=== PATIENT | female | born 1975 | race Caucasian/White ===

== ENCOUNTER 2019-04-22 10:49 | Emergency (ER) | payer MEDICARE, SELFPAY ==
[2019-04-22 10:52] VITALS: BP 115/63; PULSE 95; RESP 24; TEMP 36; O2SAT 100
--- NOTE | 2019-04-22 11:09 | DI.CT_ITS ---
SYMPTOM/DIAGNOSIS; COLICKY LT FLANK AND LUQ PAIN CT ABDOMEN AND PELVIS: Noncontrast examination was performed. The lung bases are clear. Lack of IV contrast does limit evaluation of the abdominal and pelvic organs. The liver, spleen, pancreas, gallbladder, bile ducts, adrenal glands, kidneys, ureters and bladder are unremarkable as are the reproductive organs. There is low attenuation bowel wall thickening seen in the ascending transverse and descending colon suggestive of colitis. There is a normal appendix present. The aorta is of normal caliber. No significant abdominal and pelvic adenopathy, ascites or pneumoperitoneum is seen. There is a small fat-containing umbilical hernia. No acute osseous abnormality is identified. IMPRESSION: Low attenuation bowel wall thickening throughout the colon consistent with colitis. This may represent an infectious or inflammatory colitis.
--- NOTE | 2019-04-22 11:09 | W.ED.GENAD ---
Discharge Plan Disposition Patient Disposition: HOME Condition: Improving Discharge Details Chief Complaint: Abd Prob Clinical Impression: Colitis Primary Care Provider: Jessica Rosado ED Provider: Jaguar La Home Meds and New Rx's Prescriptions: Continued Prilosec 10 MG susp,delayed release for recon 20 mg PO DAILY RF: 0 Discharge Instructions Instructions: Gastroenteritis (ED) Additional Instructions: Home to rest today. Small, frequent sips of fluids and/or popsicles to maintain hydration. May advance a bland diet today. Return if you develop a fever, bloody stool, or any other acute concerns Medical Decision Making 43-year-old female presents from home with her partner. She had the abrupt onset of 2:00 this morning of left-sided abdominal pain associated with nausea and vomiting. No fever. States she feels as if she cannot get comfortable. She arrives with a temp of 36, blood pressure 115/63, tenderness present on the left side of her abdomen but without evidence of rebound tenderness. Differential diagnosis includes renal colic, UTI, colitis, bowel obstruction, diverticulitis. Patient had IV access established comfort for laboratory testing with urinalysis. She is given fluids, antiemetic, parenteral analgesia and referred for CT scan of the abdomen. Patient has white blood cell count of 11, hematocrit is 42, platelets 180. There is slight left shift present. Chemistries reveal an anion gap of 12. Creatinine is 1.2 CT reveals low-attenuation bowel wall thickening throughout the colon consistent with colitis. No evidence of active bleeding clinically and hematocrit within normal limits. Following fluids and parenteral medications, patient stated she felt 100% better. Is able to take liquids by mouth. She is stable for discharge home with conservative management. She and her partner understand return precautions to the ER HPI General Mode of arrival: ambulatory. Date/Time Provider Initiated Documentation: 04/22/19 10:51. Limitations to Documentation: no limitations. Information obtained by: patient and family. History of Present Illness 43 year old F presents to the emergency department with the chief complaint of Left abdominal pain and, described as severe, Quality is described as constant, and is localized to the abdomen and left. Patient reports radiation to back. Patient started experiencing this hour(s) and it has been constant. No relieving factors improve symptom(s), No exacerbating factors reported . Patient notes loss of appetite and nausea/vomiting; denies fever/chills. Patient did receive the following treatments prior to arrival, none Related Data Home Medications Medication Instructions Recorded Confirmed Prilosec 20 mg PO DAILY packet 03/11/17 04/22/19 Allergies Allergy/AdvReac Type Severity Reaction Status Date / Time Penicillins Allergy Mild Unverified 04/22/19 11:00 General Stated Complaint: Abd Prob MAGALI: 3 Review of Systems Review of Systems 6 systems reviewed and otherwise negative [facility] Medical History Agoraphobia Depression with anxiety Dissociative disorder GERD (gastroesophageal reflux disease) Insomnia PAD (peripheral artery disease) Reactive lymphadenopathy Surgical History Biopsy of breast (04/05/17) Hysterectomy, Laproscopic urethral surgery Exam Narrative Exam Narrative: GEN: awake, alert, oriented 3. Pleasant, well groomed, interactive. Uncomfortable and in distress HEAD: Normocephalic, atraumatic ENT: Mucous membranes moist, oropharynx unremarkable, External ear exam unremarkable EYES: PERRL, EOMI NECK: Full ROM, no BABAK, no menigismus CHEST/RESP: Nontender, clear to auscultation bilateral, no wheeze/rhonchi/rales CARDIOVASCULAR: RRR, no murmur, rub migdalia. 2+ Rad pulse bilateral ABDOMEN: Soft, tender left upper quadrant and left flank, no mass. +Bowel sounds EXT: Full ROM, no edema, no rash Neuro: Grossly normal neurologic exam, conversant, interactive. Psych: Speech fluent, thoughts congruent, affect normal Course Vital Signs Temperature 36 C L 04/22/19 10:52 Pulse 95 H 04/22/19 10:52 Respiratory Rate 24 04/22/19 10:52 Blood Pressure 115/63 04/22/19 10:52 Pulse Oximetry 100 04/22/19 10:52 Temperature 36 C L 04/22/19 10:52 Temperature Source Tympanic 04/22/19 10:52 Pulse 95 H 04/22/19 10:52 Respiratory Rate 24 04/22/19 10:52 Blood Pressure 115/63 04/22/19 10:52 Blood Pressure Position Sitting 04/22/19 10:52 Pulse Oximetry 100 04/22/19 10:52 Oxygen Delivery Method Room Air 04/22/19 10:52 Oxygen Flow Rate 0 04/22/19 10:52 Pain Level 7 04/22/19 10:52
[2019-04-22] MEDS: Normal Saline 1,000 ML 1000 ML IV (11:10)
[2019-04-22] MEDS: Ondansetron 4 MG/2 ML VIAL IVP (11:13)
[2019-04-22] MEDS: Normal Saline Flush 10 ML SYR IVP ×2 (11:16→11:52)
[2019-04-22] MEDS: HYDROmorphone 2 MG/ML VIAL 0.5 MG IVP (11:17)
[2019-04-22 11:43] LABS: Abs Immature Grans 0.02 k/cumm (0.0-0.09); Absolute Basophil Count 0.02 k/cumm (0.0-0.2); Absolute Monocyte Count 0.98 k/cumm (0.11-0.7); Basophils % 0.2; Eosinophils % 0.4; HCT 42.6 % (36.0-46.0); HGB 14.5 g/dL (12.0-15.5); Immature Grans % 0.2; Lymphocytes % 20.1; Mean Corpuscular Hemoglobin 31.9 pg (27.0-33.0); Mean Corpuscular Volume 93.6 fL (80-95); Mean Platelet Volume 12.4 fL (8.0-11.0); Monocytes % 8.7; Neutrophils % 70.4; Platelet Count 180 x1000/uL (130-400); RBC 4.55 m/cumm (4.00-5.20); RBC Distribution Width 12.5 % (11.7-14.6); White Blood Cell Count 11.22 k/cumm (4.4-10.8)
[2019-04-22 11:44] LABS: Absolute Eosinophil Count 0.04 k/cumm (0.0-0.7); Absolute Lymphocyte Count 2.26 k/cumm (1.2-3.4)
[2019-04-22] MEDS: Ketorolac 15 MG/ML VIAL IVP (11:51)
[2019-04-22] MEDS: Pantoprazole 40 MG VIAL IVP (11:51)
[2019-04-22 11:59] LABS: ALT 26 U/L (12-78); AST 14 U/L (15-37); Albumin 4.3 g/dL (3.4-5.0); Alkaline Phosphatase 46 U/L (46-116); Anion Gap 12.8 mmol/L (3-11); BUN 13 mg/dL (7-18); Bilirubin, Total 0.4 mg/dL (0.2-1.0); CO2 23.2 mmol/L (21.0-32.0); CREATININE 1.23 mg/dL (0.55-1.02); Calcium 9.2 mg/dL (8.5-10.1); Chloride 104 mmol/L (98-107); Estimated GFR 47.22 (mL/min/1.73m2); Glucose 140 mg/dL (70-100); Potassium 3.6 mmol/L (3.5-5.1); Sodium 140 mmol/L (136-145); Total Protein 7.6 g/dL (6.4-8.2)
--- NOTE | 2019-04-22 12:07 | DI.VRAD_ITS ---
EXAM: CT Abdomen and Pelvis Without Contrast EXAM DATE/TIME: 04/22/2019 11:10 AM CLINICAL HISTORY: 43 years old, female; Abdominal pain TECHNIQUE: Imaging protocol: Axial computed tomography images of the abdomen and pelvis without contrast. Coronal and sagittal reformatted images were created and reviewed. COMPARISON: No relevant prior studies available. FINDINGS: Liver: Normal. No mass. Gallbladder and bile ducts: Normal. No calcified stones. No ductal dilation. Pancreas: Normal. No ductal dilation. Spleen: Normal. No splenomegaly. Adrenals: Normal. No mass. Kidneys and ureters: Normal. No hydronephrosis. Stomach and bowel: Low-attenuation bowel wall thickening is seen throughout the colon consistent with colitis. Differential diagnosis includes infectious and inflammatory etiologies.. Appendix: Normal appendix Intraperitoneal space: Minimal free fluid in the pelvis Vasculature: Normal. No abdominal aortic aneurysm. Lymph nodes: Normal. No enlarged lymph nodes. Bladder: Unremarkable as visualized. Reproductive: Surgical resection of the uterus Bones/joints: No acute fracture. No dislocation. Soft tissues: Umbilical hernia contains fat. No bowel IMPRESSION: Low-attenuation bowel wall thickening is seen throughout the colon consistent with colitis. Differential diagnosis includes infectious and inflammatory etiologies.. Dictated and Authenticated by: Marquis Gan MD. Ordering:NUVIA Montesinos MD
[2019-04-22 12:36] VITALS: PULSE 65; RESP 18; TEMP 36.6; O2SAT 100
== END 2019-04-22 12:45 | disposition home or self-care (01) ==
LOC: ER 12:40
PROVIDERS: Emergency Provider Emergency Medicine; PCP Nurse Practitioner Family
DX: R10.12 Left upper quadrant pain (principal); K52.9 Noninfective gastroenteritis and colitis, unspecified
CPT/HCPCS: 36415; 80053; 83690; 96361; 96374; 96375; 99283; 99284; 74176; 83735; 84484; 85025; J0780; J1885; J2405

== ENCOUNTER 2019-04-22 18:14 | Emergency (ER) | payer MEDICARE, SELFPAY ==
[2019-04-22 18:17] VITALS: BP 114/69; PULSE 54; RESP 18; TEMP 36.4; O2SAT 98
--- NOTE | 2019-04-22 18:31 | ED.GENADUL_ITS ---
Discharge Plan Disposition Patient Disposition: HOME Condition: Stable Discharge Details Chief Complaint: Recheck Clinical Impression: Colitis Primary Care Provider: Jessica Rosado ED Provider: Ángel Dillard Home Meds and New Rx's Prescriptions: New ondansetron 4 mg tablet,disintegrating 4 mg PO Q8H PRN (Reason: nausea and vomiting) Qty: 20 RF: 0 ciprofloxacin HCl 500 mg tablet 500 mg PO BID Qty: 14 RF: 0 metronidazole [Flagyl] 500 mg tablet 500 mg PO BID Qty: 14 RF: 0 No Action Prilosec 10 MG susp,delayed release for recon 20 mg PO DAILY RF: 0 Discharge Instructions Instructions: Metronidazole (By mouth), Colitis (ED) Additional Instructions: follow up with your primary care provider within 1 week for pain you can take 1000mg tylenol and 600mg ibuprofen every 6 hours as needed if you have severe worsening of pain or persistent vomit return to the emergency department Medical Decision Making 43 yo female comes in with abdominal pain. She was seen earlier and had labs and imaging that showed colitis and was d/c'd. She has increased pain and n/v so came back. She now states her pain is all but gone and on exam is in no distress with soft nondistended abodmen with no guarding or rebound anywhere. Suspect her pain is from the colitis, given increased pain will start her on abx and she will return if worsening. given pain is gone and had ct and labs earlier do not feel further testing at present indicated Differential Diagnosis colitis, irritable bowel HPI General Mode of arrival: ambulatory . Date/Time Provider Initiated Documentation: 04/22/19 18:14 . Limitations to Documentation: no limitations . Information obtained by: patient . History of Present Illness 43 year old F presents to the emergency department with the chief complaint of abdominal pain, described as moderate, Quality is described as stabbing and aching, and is localized to the abdomen. Patient started experiencing this day(s) (1) and it has been intermittent. No relieving factors improve symptom(s), No exacerbating factors reported . Patient did receive the following treatments prior to arrival, none Related Data Home Medications Medication Instructions Recorded Confirmed Prilosec 20 mg PO DAILY packet 03/11/17 04/22/19 ciprofloxacin HCl 500 mg PO BID #14 tab 04/22/19 metronidazole [Flagyl] 500 mg PO BID #14 tab 04/22/19 ondansetron 4 mg PO Q8H PRN #20 tab 04/22/19 Previous Rx's Medication Instructions Recorded ciprofloxacin HCl 500 mg PO BID #14 tab 04/22/19 metronidazole [Flagyl] 500 mg PO BID #14 tab 04/22/19 ondansetron 4 mg PO Q8H PRN #20 tab 04/22/19 Allergies Allergy/AdvReac Type Severity Reaction Status Date / Time Penicillins Allergy Mild Unverified 04/22/19 11:00 General Stated Complaint: Recheck MAGALI: 3 Review of Systems Review of Systems All systems reviewed & are unremarkable except as noted in HPI and below Constitutional Denies chills, Denies fever(s) and Denies weakness Cardiovascular Denies chest pain and Denies dyspnea Respiratory Denies dyspnea Integumentary/Breasts Denies rash Neurologic Denies weakness PFSH Social History Smoking/Tobacco Use Status: Former Tobacco Use Alcohol Intake: current Alcohol Intake frequency: 3 or more drinks per day Alcohol type: other Drug use: Daily Substance use type: marijuana Do you feel safe at home: Yes Do you feel safe in your relationship?: Yes Exam Const General: no acute distress Orientation: alert HENMT Head: normal to inspection Ears: external ears normal General nose exam: external nose normal Mouth: moist mucous membranes Eyes General: appearance normal, both eyes and all related structures Neck Neck: normal visual inspection Resp Effort & Inspection: normal respiratory effort and able to speak in complete sentences Cardio Rate: regular rate GI Inspection: normal to inspection Palpation: soft Skin General skin exam: no rashes or lesions noted Neuro General: alert and oriented x3 Extrem General: normal to inspection Psych Mental Status: mental status grossly normal Course Vital Signs Temperature 36.4 C L 04/22/19 18:17 Pulse 54 L 04/22/19 18:17 Respiratory Rate 18 04/22/19 18:17 Blood Pressure 114/69 04/22/19 18:17 Pulse Oximetry 98 04/22/19 18:17 Temperature 36.4 C L 04/22/19 18:17 Temperature Source Temporal Artery Scan 04/22/19 18:17 Pulse 54 L 04/22/19 18:17 Respiratory Rate 18 04/22/19 18:17 Respiratory Effort Non-Labored 04/22/19 18:23 Blood Pressure 114/69 04/22/19 18:17 Blood Pressure Position Sitting 04/22/19 18:17 Pulse Oximetry 98 04/22/19 18:17 Oxygen Delivery Method Room Air 04/22/19 18:17 Oxygen Flow Rate 0 04/22/19 18:17 Pain Level 1 04/22/19 18:17
[2019-04-22] MEDS: Ondansetron O.D.T. 4 MG TABEF PO ×2 (18:46)
[2019-04-22 18:47] VITALS: BP 114/69; PULSE 54; RESP 18; TEMP 36.4; O2SAT 98
[2019-04-22] MEDS: Ciprofloxacin 500 MG TAB PO (18:47)
[2019-04-22] MEDS: metroNIDAZOLE 500 MG TAB PO (18:47)
== END 2019-04-22 18:45 | disposition home or self-care (01) ==
PROVIDERS: Emergency Provider Emergency Medicine; PCP Nurse Practitioner Family
DX: K52.9 Noninfective gastroenteritis and colitis, unspecified (principal)
CPT/HCPCS: 99283

== ENCOUNTER 2019-04-22 19:30 | Emergency (ER) | payer MEDICARE, SELFPAY ==
--- NOTE | 2019-04-22 19:33 | NUR.NOTE ---
Nursing Note: 30 min after taking zofran and being discharged PT preceded to vomit and pain worsened 6/10 pain
[2019-04-22 19:34] VITALS: BP 128/94; PULSE 73; RESP 17; TEMP 37; O2SAT 99
--- NOTE | 2019-04-22 20:00 | W.ED.GENAD ---
Discharge Plan Disposition Patient Disposition: HOME Condition: Improving Discharge Details Chief Complaint: Recheck Clinical Impression: Abdominal pain, Nausea vomiting and diarrhea, Diarrhea Primary Care Provider: Jessica Rosado ED Provider: Elinor Coronado Home Meds and New Rx's Prescriptions: New prochlorperazine maleate [Compazine] 10 mg tablet 10 mg PO Q8H PRN (Reason: nausea and vomiting) Qty: 7 RF: 0 Continued Prilosec 10 MG susp,delayed release for recon 20 mg PO DAILY RF: 0 ondansetron 4 mg tablet,disintegrating 4 mg PO Q8H PRN (Reason: nausea and vomiting) Qty: 20 RF: 0 ciprofloxacin HCl 500 mg tablet 500 mg PO BID Qty: 14 RF: 0 metronidazole [Flagyl] 500 mg tablet 500 mg PO BID Qty: 14 RF: 0 Discharge Instructions Instructions: Acute Nausea and Vomiting (ED), Acute Diarrhea (ED), Abdominal Pain (ED) Additional Instructions: Take the Compazine as needed and directed for nausea and vomiting. You can stop taking the Zofran if you have no relief with this. Take the antibiotics until finished. Follow-up with your primary care doctor next week for reevaluation. Return to the emergency department if you develop any worsening or new concerning symptoms. Discharge Data Discharge Date/Time-TO BE ENTERED AT DEPARTURE: 04/22/19 22:20 Discharge Physician: Elinor Coronado Medical Decision Making 43-year-old female with a history of anxiety, depression, GERD, peptic ulcer disease and hysterectomy who presents with epigastric abdominal pain, vomiting and diarrhea for the past 3 days, worse since this morning. She was seen twice today for the same complaint, first visit she had lab work which was unremarkable and imaging which noted findings consistent with colitis, she felt better and was discharged home. Her second visit this evening was for return of nausea and pain and was found to be without pain on evaluation and was discharged with Zofran, Cipro and Flagyl. She returns this evening with return of pain and vomiting. She has tenderness palpation in her right upper quadrant, epigastrium and left upper quadrant. She admits to drinking 5 beers daily for the past several years, last drink yesterday. She appears nontoxic but uncomfortable. Differential diagnosis includes pancreatitis, peptic ulcer disease, alcoholic gastritis, biliary colic, cholecystitis, colitis. She denies any complaint of chest pain or shortness of breath and is tender in her upper abdomen so doubt ACS. As this is her third visit today, will place an IV, bolus IV fluids, repeat labs and add lipase and give Pepcid, Compazine and GI cocktail and reassess. 2129 --labs reviewed. White blood cell count slightly increased from 11.2 to 12.7. Remainder of labs unremarkable. Lipase within normal limits. Patient states her nausea is completely resolved but has return of some pain. She is requesting her IV be taken out and she would like to go home. She was offered a dose of Toradol and is agreeable. Reassessment of abdomen soft and nontender. She was offered a repeat CT abdomen but declines and would rather go home. She had no relief with Zofran earlier, will send home with a prescription for Compazine. She is instructed to fill the antibiotics and take as directed. She is advised to follow-up with her primary care doctor for reevaluation and to return here anytime if worse. Medical Records Medical records reviewed: Yes I reviewed the patient's medical records. Lab Data Lab results reviewed: Yes I reviewed the patient's lab results. Laboratory Tests Range/Units 04/22/19 04/22/19 04/22/19 20:14 20:14 20:14 WBC (4.4-10.8) k/cumm 12.70 H RBC (4.00-5.20) m/cumm 4.20 Hgb (12.0-15.5) g/dL 13.5 Hct (36.0-46.0) % 39.5 MCV (80-95) fL 94.0 MCH (27.0-33.0) pg 32.1 MCHC (32.0-36.0) g/dL 34.2 RDW (11.7-14.6) % 12.6 Plt Count (130-400) x1000/uL 183 MPV (8.0-11.0) fL 11.8 H Immature Gran % 0.2 Neutrophils % 76.4 Lymphocytes % 15.1 Monocytes % 8.0 Eosinophils % 0.1 Basophils % 0.2 Absolute Neutrophils (1.2-6.7) k/cumm 9.70 H Absolute Lymphocytes (1.2-3.4) k/cumm 1.92 Absolute Monocytes (0.11-0.7) k/cumm 1.02 H Absolute Eosinophils (0.0-0.7) k/cumm 0.01 Absolute Basophils (0.0-0.2) k/cumm 0.03 Sodium (136-145) mmol/L 139 Potassium (3.5-5.1) mmol/L 3.4 L Chloride (98-107) mmol/L 104 Carbon Dioxide (21.0-32.0) mmol/L 23.3 Anion Gap (3-11) mmol/L 11.7 H BUN (7-18) mg/dL 11 Creatinine (0.55-1.02) mg/dL 1.21 H Estimated GFR/1.73 m2 (mL/min/1.73m2) 48.12 Glucose (70-100) mg/dL 135 H Calcium (8.5-10.1) mg/dL 8.5 Magnesium (1.8-2.4) mg/dL 1.8 Total Bilirubin (0.2-1.0) mg/dL 0.3 AST (15-37) U/L 11 L ALT (12-78) U/L 24 Alkaline Phosphatase (46-116) U/L 43 L Troponin I (0.00-0.06) ng/mL < 0.05 Total Protein (6.4-8.2) g/dL 7.1 Albumin (3.4-5.0) g/dL 4.0 Lipase (73-393) U/L 67 L HPI General Mode of arrival: ambulatory. Date/Time Provider Initiated Documentation: 04/22/19 19:31. Limitations to Documentation: no limitations. Information obtained by: patient. HPI Narrative: Patient is a 43-year-old female with a history of anxiety, depression, GERD, peptic ulcer disease, dissociative disorder, [place] phobia, hysterectomy who presents the ED with complaint of epigastric abdominal pain, vomiting and diarrhea for the past 3 days, worse since this morning. She describes the pain as feeling like an ocean wave and like I am riding on a roller coaster with a whooshing feeling in my upper abdomen. She denies any radiation of pain. She states she vomited 10 times today which was mainly phlegm. She admits to a watery brown diarrhea this morning. She states she drinks up to 5 beers daily every day for the past several years and last drink 4 alcoholic drinks yesterday. She denies any aggravating or alleviating factors. She denies regular NSAID use. She denies any recent antibiotics, recent travel, fever, chest pain, shortness of breath or urinary symptoms. She states she has 2 grandchildren that she is around frequently and states that she may have been exposed to something with them. Related Data Home Medications Medication Instructions Recorded Confirmed Prilosec 20 mg PO DAILY packet 03/11/17 04/22/19 ciprofloxacin HCl 500 mg PO BID #14 tab 04/22/19 04/22/19 metronidazole [Flagyl] 500 mg PO BID #14 tab 04/22/19 04/22/19 ondansetron 4 mg PO Q8H PRN #20 tab 04/22/19 04/22/19 prochlorperazine maleate 10 mg PO Q8H PRN #7 tab 04/22/19 [Compazine] Previous Rx's Medication Instructions Recorded ciprofloxacin HCl 500 mg PO BID #14 tab 04/22/19 metronidazole [Flagyl] 500 mg PO BID #14 tab 04/22/19 ondansetron 4 mg PO Q8H PRN #20 tab 04/22/19 prochlorperazine maleate 10 mg PO Q8H PRN #7 tab 04/22/19 [Compazine] Allergies Allergy/AdvReac Type Severity Reaction Status Date / Time Penicillins Allergy Mild Unverified 04/22/19 19:38 General Stated Complaint: Recheck MAGALI: 3 Review of Systems Review of Systems All systems reviewed & are unremarkable except as noted in HPI and below Constitutional Reports as per HPI, Denies chills and Denies fever(s) Eyes Denies blurry vision ENT Denies dizziness, Denies sore throat and Denies throat swelling Cardiovascular Denies chest pain and Denies dyspnea Respiratory Denies cough and Denies dyspnea Gastrointestinal Reports abdominal pain, Reports diarrhea and Reports vomiting Genitourinary Denies hematuria and Denies dysuria Musculoskeletal Denies back pain and Denies numbness Integumentary/Breasts Denies lesions and Denies rash Neurologic Denies dizziness, Denies focal weakness and Denies numbness Allergic/Immunologic Denies throat swelling [facility] Medical History (Updated 04/22/19 @ 20:25 by Elinor Coronado DO) Agoraphobia Depression with anxiety Dissociative disorder GERD (gastroesophageal reflux disease) Insomnia PAD (peripheral artery disease) Peptic ulcer disease (Chronic) Reactive lymphadenopathy Surgical History Biopsy of breast (04/05/17) Hysterectomy, Laproscopic urethral surgery Social History Smoking/Tobacco Use Status: Former Tobacco Use Alcohol Intake: current Alcohol Intake frequency: 3 or more drinks per day Alcohol type: other Drug use: Daily Substance use type: marijuana Do you feel safe at home: Yes Do you feel safe in your relationship?: Yes Exam Const General: cooperative, healthy appearing and other (appears uncomfortable, holding her upper abdomen) Orientation: alert, awake and oriented x3 HENMT Head: normal to inspection Face and sinus: normal facial exam Eyes General: appearance normal, both eyes and all related structures EOM: EOM intact bilaterally Neck Neck: normal visual inspection and No submandibular swelling Lymphatic: no lymphadenopathy noted Chest Chest: normal inspection of the chest and no tenderness Resp Effort & Inspection: normal respiratory effort and able to speak in complete sentences Auscultation: clear to auscultation bilaterally Cardio Rate: regular rate Rhythm: regular rhythm GI Inspection: normal to inspection Palpation: not firm, not rigid and tender in the epigastrum, in the LUQ and in the RUQ Auscultation: normal bowel sounds Back/Spine/Pelvis Back: no CVA tenderness Skin General skin exam: no rashes or lesions noted Neuro General: alert, awake and oriented x3 Cognition: normal cognition Speech: speech normal Motor: muscle tone normal throughout Sensory Exam: no sensory deficits noted Extrem General: normal to inspection, full ROM, normal capillary refill, no calf tenderness bilaterally and no edema Psych Appearance: grossly normal Mental Status: mental status grossly normal Speech and Movement: speech and movement normal Affect: normal affect Course Vital Signs Temperature 98.6 F 04/22/19 19:34 Pulse 73 04/22/19 19:34 Respiratory Rate 17 04/22/19 19:34 Blood Pressure 128/94 H 04/22/19 19:34 Pulse Oximetry 99 04/22/19 19:34 Temperature 98.6 F 04/22/19 19:34 Temperature Source Skin 04/22/19 19:34 Pulse 73 04/22/19 19:34 Respiratory Rate 17 04/22/19 19:34 Respiratory Effort 04/22/19 19:37 Blood Pressure 128/94 H 04/22/19 19:34 Blood Pressure Position Sitting 04/22/19 19:34 Pulse Oximetry 99 04/22/19 19:34 Oxygen Delivery Method Room Air 04/22/19 19:34 Oxygen Flow Rate 0 04/22/19 19:34 Pain Level 6 04/22/19 19:34
[2019-04-22 20:21] LABS: Abs Immature Grans 0.03 k/cumm (0.0-0.09); Absolute Basophil Count 0.03 k/cumm (0.0-0.2); Absolute Eosinophil Count 0.01 k/cumm (0.0-0.7); Absolute Lymphocyte Count 1.92 k/cumm (1.2-3.4); Absolute Monocyte Count 1.02 k/cumm (0.11-0.7); Basophils % 0.2; Eosinophils % 0.1; HCT 39.5 % (36.0-46.0); HGB 13.5 g/dL (12.0-15.5); Immature Grans % 0.2; Lymphocytes % 15.1; Mean Corp. HGB Concentration 34.2 g/dL (32.0-36.0); Mean Corpuscular Hemoglobin 32.1 pg (27.0-33.0); Mean Platelet Volume 11.8 fL (8.0-11.0); Neutrophils % 76.4; Platelet Count 183 x1000/uL (130-400); RBC Distribution Width 12.6 % (11.7-14.6)
[2019-04-22] MEDS: FAMOTIDINE 20 MG/50 ML BAG 200 MG IVPB (20:21)
[2019-04-22] MEDS: Normal Saline 1,000 ML 1000 ML IV (20:22)
[2019-04-22] MEDS: Prochlorperazine 10 MG/2 ML VIAL IVP (20:22)
[2019-04-22 20:38] LABS: ALT 24 U/L (12-78); AST 11 U/L (15-37); Alkaline Phosphatase 43 U/L (46-116); Anion Gap 11.7 mmol/L (3-11); BUN 11 mg/dL (7-18); Bilirubin, Total 0.3 mg/dL (0.2-1.0); CO2 23.3 mmol/L (21.0-32.0); CREATININE 1.21 mg/dL (0.55-1.02); Calcium 8.5 mg/dL (8.5-10.1); Chloride 104 mmol/L (98-107); Estimated GFR 48.12 (mL/min/1.73m2); Glucose 135 mg/dL (70-100); Magnesium 1.8 mg/dL (1.8-2.4); Potassium 3.4 mmol/L (3.5-5.1); Sodium 139 mmol/L (136-145); Total Protein 7.1 g/dL (6.4-8.2); Troponin I < 0.05 ng/mL (0.00-0.06)
[2019-04-22 21:00] LABS: Lipase 67 U/L (73-393)
[2019-04-22] MEDS: Ketorolac 30 MG/ML VIAL IVP (21:48)
== END 2019-04-22 22:20 | disposition home or self-care (01) ==
PROVIDERS: Emergency Provider Physician Assistant; PCP Nurse Practitioner Family
DX: R10.13 Epigastric pain (principal); R11.2 Nausea with vomiting, unspecified; R19.7 Diarrhea, unspecified
CPT/HCPCS: 36415; 80053; 83690; 96361; 96374; 96375; 99284; 83735; 84484; 85025; J0780; J1885

== ENCOUNTER 2019-04-24 13:40 | Outpatient (REF) | payer MEDICARE, SELFPAY ==
[2019-04-24 22:43] LABS: Anion Gap 11.2 mmol/L (3-11); BUN 5 mg/dL (7-18); CO2 26.8 mmol/L (21.0-32.0); CREATININE 0.91 mg/dL (0.55-1.02); Calcium 9.4 mg/dL (8.5-10.1); Chloride 104 mmol/L (98-107); Glucose 107 mg/dL (70-100); Sodium 142 mmol/L (136-145); TSH (W/Ref FT4) 1.25 uIU/mL (0.36-3.74)
== END 2019-04-24 14:00 ==
LOC: NCHCN 13:40
PROVIDERS: PCP Nurse Practitioner Family; Visit Provider Nurse Practitioner Family
DX: R00.1 Bradycardia, unspecified (principal); R11.10 Vomiting, unspecified
CPT/HCPCS: 80048; 84443

== ENCOUNTER 2019-04-26 09:27 | Emergency (ER) | payer MEDICARE, SELFPAY ==
[2019-04-26 09:28] VITALS: BP 143/86; PULSE 56; RESP 16; TEMP 37.1; O2SAT 97
--- NOTE | 2019-04-26 09:54 | ED.GENADUL_ITS ---
Discharge Plan Disposition Patient Disposition: HOME Condition: Stable Discharge Details Chief Complaint: Nausea/Vomit/Diar Clinical Impression: Cannabinoid hyperemesis syndrome Primary Care Provider: Jessica Rosado ED Provider: Ángel Dillard Home Meds and New Rx's Prescriptions: No Action Prilosec 10 MG susp,delayed release for recon 20 mg PO DAILY RF: 0 ondansetron 4 mg tablet,disintegrating 4 mg PO Q8H PRN (Reason: nausea and vomiting) Qty: 20 RF: 0 ciprofloxacin HCl 500 mg tablet 500 mg PO BID Qty: 14 RF: 0 metronidazole [Flagyl] 500 mg tablet 500 mg PO BID Qty: 14 RF: 0 Discharge Instructions Additional Instructions: Your symptoms and findings could be from what's called cannabinoid hyperesmesis syndrome, which is abdominal pain/nausea/vomit from prolonged use of marijuana. Use the capsaicin cream as needed for nausea/abdominal pain/vomit follow up with your primary care provider within 1-2 weeks if symptoms continue if you have severe worsening pain not improving with the cream or feel more ill return to the emergency department Medical Decision Making 43 yo female with hx of agoraphobia, who comes in with continued n/v and luq and epigastric pain. Was seen on 04/22 with negative labs and imaging other than possible colitis. She returned that same day for similar symptoms and d/c'd after her symptoms resolved and had reassuring repeat lab work and exam. She states she continues to have intermittent pain and n/v. She does use marijuana daily otherwise denies drug use. She has had a hysterectomy in the psat. She arrives in no distress, does appear anxious. She has no lower abdominal tenderness and abdomen is soft on exam without distention. Has mild epigastric and luq pain. Her exam is reassuring that she is not suffering from surgical pathology such as cholecystitis, appendicitis and sbo. No chest pain or pressure or sob so doubt acs. I ssupect her symptoms could be cyclic vomit/cannabinoid hyperemesis. will obtain lab works and try capsacin cream and if this fails try ativan as zofran/compazine hasn't provided much relief pt's symptoms resolved with capsaicin cream and labs unremarkable, mild elevation of alt otherwise negative lfts and no longer has any abdominal tenderness. Given symptoms resolved with capsacin suspect cannabinoid hyperemesis. Advised f/u with pcp and return precautions given Differential Diagnosis cyclic vomit, cannabinoid hyperemesis Medical Records Medical records reviewed: Yes I reviewed the patient's medical records. Lab Data Lab results reviewed: Yes I reviewed the patient's lab results. HPI General Mode of arrival: ambulatory . Date/Time Provider Initiated Documentation: 04/26/19 09:28 . Limitations to Documentation: no limitations . Information obtained by: patient . History of Present Illness 43 year old F presents to the emergency department with the chief complaint of nausea/vomit, described as moderate, and it has been intermittent. No relieving factors improve symptom(s), No exacerbating factors reported . Patient did receive the following treatments prior to arrival, none Related Data Home Medications Medication Instructions Recorded Confirmed Prilosec 20 mg PO DAILY packet 03/11/17 04/26/19 ciprofloxacin HCl 500 mg PO BID #14 tab 04/22/19 04/26/19 metronidazole [Flagyl] 500 mg PO BID #14 tab 04/22/19 04/26/19 ondansetron 4 mg PO Q8H PRN #20 tab 04/22/19 04/26/19 Previous Rx's Medication Instructions Recorded ciprofloxacin HCl 500 mg PO BID #14 tab 04/22/19 metronidazole [Flagyl] 500 mg PO BID #14 tab 04/22/19 ondansetron 4 mg PO Q8H PRN #20 tab 04/22/19 Allergies Allergy/AdvReac Type Severity Reaction Status Date / Time Penicillins Allergy Mild Unverified 04/26/19 09:44 prochlorperazine AdvReac Mild Unverified 04/26/19 09:45 [From Compazine] General Stated Complaint: Nausea/Vomit/Diar MAGALI: 3 Review of Systems Review of Systems All systems reviewed & are unremarkable except as noted in HPI and below Constitutional Denies chills, Denies fever(s) and Denies weakness Cardiovascular Denies chest pain and Denies dyspnea Respiratory Denies cough and Denies dyspnea Gastrointestinal Denies vomiting Neurologic Denies weakness PFSH Medical History (Updated 04/22/19 @ 20:25 by Elinor Coronado DO) Agoraphobia Depression with anxiety Dissociative disorder GERD (gastroesophageal reflux disease) Insomnia PAD (peripheral artery disease) Peptic ulcer disease (Chronic) Reactive lymphadenopathy Surgical History Biopsy of breast (04/05/17) Hysterectomy, Laproscopic urethral surgery Social History Smoking/Tobacco Use Status: Former Tobacco Use Alcohol Intake: current Alcohol Intake frequency: 3 or more drinks per day Alcohol type: other Drug use: Daily Substance use type: marijuana Do you feel safe at home: Yes Do you feel safe in your relationship?: Yes Exam Const General: no acute distress Orientation: alert HENMT Head: normal to inspection Ears: external ears normal General nose exam: external nose normal Mouth: moist mucous membranes Eyes General: appearance normal, both eyes and all related structures Neck Neck: normal visual inspection Resp Effort & Inspection: normal respiratory effort and able to speak in complete sentences Cardio Rate: regular rate GI Palpation: soft Skin General skin exam: no rashes or lesions noted Neuro General: alert and oriented x3 Extrem General: normal to inspection Psych Mental Status: mental status grossly normal Course Vital Signs Temperature 37.1 C 04/26/19 09:28 Pulse 56 L 04/26/19 09:28 Respiratory Rate 16 04/26/19 09:28 Blood Pressure 143/86 H 04/26/19 09:28 Pulse Oximetry 97 04/26/19 09:28 Temperature 37.1 C 04/26/19 09:28 Temperature Source Skin 04/26/19 09:28 Pulse 56 L 04/26/19 09:28 Respiratory Rate 16 04/26/19 09:28 Respiratory Effort 04/26/19 09:52 Blood Pressure 143/86 H 04/26/19 09:28 Blood Pressure Position Sitting 04/26/19 09:28 Pulse Oximetry 97 04/26/19 09:28 Oxygen Delivery Method Room Air 04/26/19 09:28 Oxygen Flow Rate 0 04/26/19 09:28 Pain Level 4 04/26/19 09:28 Comment 04/26/19 09:28
[2019-04-26] MEDS: Normal Saline 1,000 ML 1000 ML IV (10:00)
[2019-04-26 10:11] LABS: Abs Immature Grans 0.03 k/cumm (0.0-0.09); Absolute Basophil Count 0.03 k/cumm (0.0-0.2); Absolute Eosinophil Count 0.05 k/cumm (0.0-0.7); Absolute Lymphocyte Count 3.01 k/cumm (1.2-3.4); Absolute Neutrophil Count 6.19 k/cumm (1.2-6.7); Basophils % 0.3; Eosinophils % 0.5; HCT 40.1 % (36.0-46.0); HGB 13.9 g/dL (12.0-15.5); Immature Grans % 0.3; Lymphocytes % 28.9; Mean Corp. HGB Concentration 34.7 g/dL (32.0-36.0); Mean Corpuscular Hemoglobin 31.9 pg (27.0-33.0); Mean Platelet Volume 11.6 fL (8.0-11.0); Monocytes % 10.6; Neutrophils % 59.4; Platelet Count 190 x1000/uL (130-400); RBC 4.36 m/cumm (4.00-5.20); RBC Distribution Width 12.3 % (11.7-14.6); White Blood Cell Count 10.41 k/cumm (4.4-10.8)
[2019-04-26 10:29] LABS: ALT 79 U/L (12-78); AST 27 U/L (15-37); Albumin 4.1 g/dL (3.4-5.0); Alkaline Phosphatase 44 U/L (46-116); Anion Gap 10.3 mmol/L (3-11); BUN 6 mg/dL (7-18); Bilirubin, Direct 0.12 mg/dL (0.00-0.20); Bilirubin, Total 0.4 mg/dL (0.2-1.0); CO2 26.7 mmol/L (21.0-32.0); CREATININE 1.01 mg/dL (0.55-1.02); Calcium 8.8 mg/dL (8.5-10.1); Chloride 102 mmol/L (98-107); Estimated GFR 59.27 (mL/min/1.73m2); Glucose 110 mg/dL (70-100); Lipase 68 U/L (73-393); Magnesium 2.2 mg/dL (1.8-2.4); Potassium 3.3 mmol/L (3.5-5.1); Sodium 139 mmol/L (136-145); Total Protein 7.2 g/dL (6.4-8.2)
--- NOTE | 2019-04-26 10:34 | NUR.NOTE ---
Nursing Note: 1030--Relief of nausea 20 min after application of Capsacian cream
[2019-04-26 10:55] VITALS: BP 136/78; PULSE 56; RESP 16; TEMP 37; O2SAT 97
== END 2019-04-26 10:55 | disposition home or self-care (01) ==
PROVIDERS: Emergency Provider Emergency Medicine; PCP Nurse Practitioner Family
DX: F12.188 Cannabis abuse with other cannabis-induced disorder (principal); R11.10 Vomiting, unspecified
CPT/HCPCS: 36415; 80053; 80076; 83690; 96361; 96374; 99284; 83735; 85025

== ENCOUNTER → 2019-07-05 10:14 | Outpatient (BNVA) | payer MEDICARE, SELFPAY | PROVIDERS: PCP Nurse Practitioner Family; Referring Provider Nurse Practitioner Family; Visit Provider Physical Therapy Assistant | DX: K52.9 Noninfective gastroenteritis and colitis, unspecified (principal) | CPT/HCPCS: 99213 ==

== ENCOUNTER 2019-07-26 13:55 | Outpatient (REF) | payer MEDICARE, SELFPAY ==
[2019-07-26 19:32] LABS: Anion Gap 10.1 mmol/L (3-11); BUN 8 mg/dL (7-18); CO2 25.9 mmol/L (21.0-32.0); CREATININE 1.12 mg/dL (0.55-1.02); Calcium 9.3 mg/dL (8.5-10.1); Chloride 104 mmol/L (98-107); Estimated GFR 52.61 (mL/min/1.73m2); Glucose 91 mg/dL (70-100); Magnesium 2.1 mg/dL (1.8-2.4); Potassium 4.2 mmol/L (3.5-5.1); Sodium 140 mmol/L (136-145); Vitamin B12 336 pg/mL (193-986)
== END 2019-07-26 14:15 ==
LOC: NCHCN 13:55
PROVIDERS: PCP Nurse Practitioner Family; Visit Provider Nurse Practitioner Family
DX: K21.9 Gastro-esophageal reflux disease without esophagitis (principal); K52.9 Noninfective gastroenteritis and colitis, unspecified; R19.00 Intra-abdominal and pelvic swelling, mass and lump, unspecified site
CPT/HCPCS: 80048; 82607; 83735

== ENCOUNTER 2019-07-31 08:33 | Outpatient (CLI) | payer MEDICARE, SELFPAY ==
--- NOTE | 2019-07-31 08:37 | DI.US_ITS ---
EXAM: US ABDOMEN CLINICAL HISTORY: ABDOMINAL MASS R19.00 TECHNIQUE: Ultrasound performed using standard protocol. COMPARISON: CT ABDOMEN PELVIS WO from 04/22/2019 FINDINGS: The exam is somewhat limited by the patient's body habitus. The liver is normal in size and echogen icity. No biliary dilatation is seen. The gallbladder has a normal appearance, without evidence of s tones or wall thickening. The pancreas, spleen, kidneys and aorta are unremarkable. In the area of t he patient's pain in the midline of the abdomen, above the umbilicus, there is a hernia containing fl uid. It did not change with Valsalva and was not reducible. IMPRESSION: Fatty containing hernia above the level of the umbilicus with a small fluid collection.
== END 2019-07-31 08:53 ==
PROVIDERS: PCP Nurse Practitioner Family; Visit Provider Nurse Practitioner Family
DX: R19.00 Intra-abdominal and pelvic swelling, mass and lump, unspecified site (principal); K42.9 Umbilical hernia without obstruction or gangrene
CPT/HCPCS: 76700

== ENCOUNTER → 2019-09-06 12:51 | Outpatient (BNVA) | payer MEDICARE, SELFPAY | PROVIDERS: PCP Nurse Practitioner Family; Referring Provider Nurse Practitioner Family; Visit Provider Physical Therapy Assistant | DX: K52.9 Noninfective gastroenteritis and colitis, unspecified (principal) | CPT/HCPCS: 99213 ==

== ENCOUNTER 2019-09-13 06:12 | Day surgery (SDC) | payer MEDICARE, SELFPAY ==
[2019-09-13 06:46] VITALS: BP 125/82; PULSE 86; RESP 18; TEMP 36.2; O2SAT 97
[2019-09-13] MEDS: Lactated Ringers 1,000 ML 80 ML IV (07:01)
--- NOTE | 2019-09-13 07:51 | BOWEL_PTH ---
PATIENT: Chandan Lo LOC: [facility] U#:[id number] AGE/SX: 43/F ROOM: RE09/13/[address]: Batsheva Blanco : 1975 BED: DIS: 09/13/2019 SPEC #: [id number] RECD: 09/13/19 12:52 STATUS: KENTRELL RE #: [id number] JUDSON: 09/13/19 07:[address]: Batsheva Blanco DEPT: Surgical Specimen RECD BY: Caryl Lovett ENTERED: 09/13/19 13:01 SP TYPE: Bowel OTHR DR: Jessica Rosado Tissues: 1 - BIOPSY BOWEL 2 - BIOPSY BOWEL 3 - STOMACH BIOPSY 4 - STOMACH BIOPSY 5 - ESOPHAGUS BIOPSY 6 - ESOPHAGUS BIOPSY 7 - BIOPSY BOWEL 8 - BIOPSY BOWEL 9 - BIOPSY BOWEL 10 - BIOPSY BOWEL 11 - BIOPSY BOWEL Procedures: GROSS AND MICRO LEVEL 4 Comments: [id number]
--- NOTE | 2019-09-13 08:27 | ENDO_ITS ---
Date of service: 09/13/19 Time of Service: 08:27 Endoscopy Report POST-OP DIAGNOSIS: other (sm. hiatal hernia/mild gastritis) ANESTHESIA: GETA ESTIMATED BLOOD LOSS: 1 PREP: Miralax/Dulcolax PROCEDURE DESCRIPTION: After informed consent was obtained the patient was take to the procedure room and placed in a supine position. Monitors were applied and a time out was done. The patients name, date of , procedure type, allergies to medications and metal in their body was reviewed. A bite block was placed and the patient was sedated. Once sedated and comfortable the gastroscope was advanced through the oropharynx which was grossly normal into the esophagus. The proximal and mid-esophagus were nl. In the distal esophagus there was healthy. The scope was advanced into the stomach and through the pylorus into the 3rd portion of the duodenum. The duodenum was noted to be nl. [place] appears pink and healthy. Vasculature archituexture appears nl. [place] appears healthy. Biopsies were done prox jejunum The scope was retracted back into the stomach and biopsies were done to rule out H. pylori. There were no ulcers. There is some mild gasttritis in the antrum. The scope was retroflexed. The cardia and fundus were noted to be normal. There is a small hiatal hernia noted. The scope was retracted back into the esophagus and biopsies were done of the GE junction to rule out Mariscal's. The GE junction was at 38 cm. She has a very small hiatal hernia. The scope was removed and the patient was woken up and taken back to [facility] in stable condition.
--- NOTE | 2019-09-13 08:29 | W.COLOREPORT ---
Colonoscopy Report Procedure Description: After informed consent was obtained the patient was taken to the procedure room and placed in a left decubitous position. Monitors were applied and a time out was done. The patients name, date of , procedure, allergies to medications and metal in their body was reviewed. The patient was then sedated. Once sedated and comfortable a rectal exam was done. External exam was normal. Internal exam revealed a normal sphincter tone and no palpable masses. The scope was then introduced and retrofelexed. no internal hemorrhoids were identified. The scope was then advanced to the cecum w/out difficulty. The TI and appendiceal orifice were identified. The prep was adequate. The scope was then slowly retracted over 12 minutes back into the rectum. There were no polyps AVMs or diverticula.. The colon appears pink and healthy. The vasculature appears normal. Biopsies were taken in the cecum/80 cm which is a sending colon/50 cm or transverse colon/30 cm sigmoid colon/rectum. All specimens are retrieved and no significant bleeding is noted the scope was removed and the patient was woken up and taken back to Same day surgery in stable condition. The patient tolerated the procedure well and there were no immediate complications. Follow up: The patient should follow up in 10 years unless they develop changes in bowel habits or other new gastrointestinal complaints.
--- NOTE | 2019-09-13 08:31 | W.PM.DSUDISC ---
Discharge Plan Disposition Patient Disposition: HOME Condition: Good Discharge Details Reason For Visit: stomach adn colon scope Attending Provider: Batsheva Blanco Primary Care Provider: Jessica Rosado Home Meds and New Rx's Prescriptions: New sucralfate [Carafate] 1 gram tablet 1 gm PO QACHS Qty: 120 RF: 12 pantoprazole [Protonix] 40 mg tablet,delayed release (DR/EC) 40 mg PO DAILY Qty: 30 RF: 12 Continued buspirone 15 mg tablet 15 mg PO BID RF: 0 Discontinued polyethylene glycol 3350 17 gram/dose powder 238 g PO ONCE Qty: 238 RF: 0 bisacodyl [Dulcolax (bisacodyl)] 5 mg tablet,delayed release (DR/EC) 5 mg PO ONCE Qty: 4 RF: 0 omeprazole 40 mg capsule,delayed release(DR/EC) 40 mg PO DAILY RF: 0 Discharge Instructions Instructions: Diet for Stomach Ulcers and Gastritis (GEN), Gastroesophageal Reflux Disease (GEN) Additional Instructions: Findings:colon- normal stomach- mild gastritis added carafate -Continue with lifestyle modifications: no alcohol, tobacco products, Aspirin or NSAID's (ibuprofen, Motrin, Naprosyn, aleve, etc). Try to limit: soda pop/any carbonated beverages, caffeine (including tea & chocolate), and acidic foods, (tomatoes, citrus, onions, peppermints) spicy or fried/fatty foods. Do not lie down for 30 minutes after eating, and do not eat 2 hours prior to bedtime. Avoid wearing tight fitting clothing/ belts repeat colon scope in 10 yrs time Follow up:Will send a letter w/ biopsy results in 2-3 wks. Please call if you develop: fevers >101.5 Nausea or Vomiting Abdominal pain that is not transient DAY SURGERY UNIT POST COLONOSCOPY INSTRUCTIONS 1. Because there will be medication in your system for the next 24 hours, you may feel a little sleepy. Your coordination will be affected. Therefore: a. Do not drive or operate dangerous equipment for 24 hours. b. Do not drink alcohol beverages for 24 hours (not even beer). c. Plan to go home and rest for the day. 2. Generally there are no restrictions on your activity after a day or so has gone by, but you may feel a bit fatigued for a few days. 3 After you arrive home you may have a light meal and return to a normal diet as you can tolerate it without feeling sick to your stomach. 4. After surgery, you may feel pain or discomfort. This should be only transient, but if it persists please contact your doctor. 5. If there are any questions regarding the findings of your procedure, please feel free to contact your doctor. 6. If you are unable to contact your doctor with a problem, contact the hospital at [phone]. 7. Continue all your regular medications unless directed otherwise. I understand the above instructions and have no questions. Signature of Patient or Responsible Adult Escort Date/Time Name of Responsible Adult Escort Signature of Nurse Date/Time Stand Alone Forms: Earnest Vieira (ASHLEEU) Activity:: no strenuous activity or heavy lifting x 24 hrs Diet:: small lt meals x 24 hrs Discharge Orders Discharge Orders: Discharge Order (Routine); Ordered 09/13/19 Ordered By: Batsheva Blanco Discharge Data Discharge Date/Time-TO BE ENTERED AT DEPARTURE: 09/13/19 09:30 DS: Diagnosis Discharge Diagnosis (1) Gastritis: Status: Acute
== END 2019-09-13 09:30 | disposition home or self-care (01) ==
PROVIDERS: PCP Nurse Practitioner Family; Visit Provider Surgery
PROC: (CPT 45380; principal; 2019-09-13 07:30)
DX: K52.9 Noninfective gastroenteritis and colitis, unspecified (principal); R10.13 Epigastric pain; R11.2 Nausea with vomiting, unspecified; K21.0 Gastro-esophageal reflux disease with esophagitis; K44.9 Diaphragmatic hernia without obstruction or gangrene; K29.70 Gastritis, unspecified, without bleeding
CPT/HCPCS: 45380; 43239; 88305

== ENCOUNTER 2019-09-20 00:37 | Outpatient (CLI) | payer MEDICARE, SELFPAY ==
--- NOTE | 2019-09-20 15:15 | DI.MAMMO_ITS ---
EXAM: MG MAMMO SCREENING CLINICAL HISTORY: SCREENING Z12.31, FAM HX BREAST CANCER Z80.3 TECHNIQUE: Mammograms were interpreted according to the usual protocol including computer analysis w [facility] CAD system, tomosynthesis and C-view imaging. COMPARISON: FINDINGS: The breasts are of moderate density with fairly symmetrical distribution of fibroglandular tissue. W ell-circumscribed mass of the upper outer quadrant of the right breast is unchanged in appearance com parison with previous examination of January 2017 and may represent lymph node versus cyst. No new mass or clumped microcalcification identified in either breast. IMPRESSION: No specific evidence of malignancy at this time. Routine screening examinations are suggested at yea rly intervals due to the family history of breast carcinoma Category 1, breast density category B
== END 2019-09-20 00:57 ==
PROVIDERS: PCP Nurse Practitioner Family; Visit Provider Nurse Practitioner Family
DX: Z12.31 Encounter for screening mammogram for malignant neoplasm of breast (principal); Z80.3 Family history of malignant neoplasm of breast
CPT/HCPCS: 77063; 77067

== ENCOUNTER → 2019-10-05 14:14 | Outpatient (BNVA) | payer MEDICARE, SELFPAY | PROVIDERS: PCP Nurse Practitioner Family; Referring Provider Nurse Practitioner Family; Visit Provider Surgery | DX: K42.9 Umbilical hernia without obstruction or gangrene (principal); K43.9 Ventral hernia without obstruction or gangrene | CPT/HCPCS: 99202; 99213 ==

== ENCOUNTER 2019-10-31 06:20 | Day surgery (SDC) | payer MEDICARE, SELFPAY ==
[2019-10-31] VITALS (9 sets, daily range): BP systolic 94–128; BP diastolic 56–85; PULSE 45–89; RESP 15–20; TEMP 36–36.7; O2SAT 95–97
--- NOTE | 2019-10-31 06:44 | ROE_ITS ---
Date of service: 10/31/19 Time of Service: 09:35 Operative Note Operative Note DATE OF PROCEDURE: 10/31/19 PRE-OP DIAGNOSIS: 1. Umbilical Hernia 2. Epigastric/ supraumbilical hernia POST-OP DIAGNOSIS: same PROCEDURE: Open repair of both hernias with mesh SURGEON: Judy Dowling ANESTHESIA: regional (Bilateral rectus block), local (1% Lidociane 7 cc and Bupivocaine 0.25% 10 cc) and other (General with LMA / ASA 2/ Lico Contreras) ESTIMATED BLOOD LOSS: 5 PATHOLOGY: none sent COMPLICATIONS: None Patient was transported to: PACU Patient's condition: stable Implants: Ventralex ST Hernia Patch REF [id number] EXP 2021-03-23 Indications: (1) Umbilical hernia: A\\ 43 year opld female with small umbilical hernia P\\ Open hernia repair with mesh Pain controll with Exparel and tylenol and ibuprofen Narcotics for 3 days if pain not controlled with local and ibuprofen and tylenol Risks, benefits and complications have been reviewed. Complications include but are not limited to bleeding, pain, infection, injury to underlying structures like bowel and adverse reaction to the medication. Questions were entertained and answered to their satisfaction and they wished to proceed. No guarantees were given or implied. (2) Epigastric hernia: A\\ Supra-umbilical/ epigastric hernia P\\ Open hernia repair with mesh Risks, benefits and complications have been reviewed. Complications include but are not limited to bleeding, pain, infection, injury to underlying structures like bowel and adverse reaction to the medication. Questions were entertained and answered to their satisfaction and they wished to proceed. No guarantees were given or implied. Findings: Supra-umbilical hernia- defect measured 1.5 cm. It was enlarged to 2.5 cm toget a mesh under it Umbilical hernia- <1 cm in size closed with 2-0 proline Procedure Description: After informed consent was obtained the patient was taken to the operating room and placed in a supine position. Monitors and SCDs were applied and a timeout was done. The patient's name, date of , procedure type, procedure site, allergies to medications, preoperative antibiotic, and DVT prophylaxis were all reviewed. Fire risk was assessed. Next anesthesia did a bilateral rectus block under ultrasound guidance. Please see their separate dictation. Once anesthesia was done the abdomen was prepped and draped in a sterile surg ical fashion. 1% Lidocaine was injected into the dermis 7 cm superior to the umbilicus. The hernia was palpable and had been marked in SDS. An incision was made with a 10 blade over the palpable hernia. Dissection was done with cautery through the subcutaneous tissues to the hernia sac. The hernia sac was trimmed. Cockers were placed on the fascia. The defect was measured and was 1.5 cm in s ize. The defect was opened to 2.5 cm and a 6.5 cm round mesh was placed into the peritoneum. It was secured at the 3 and 9 oclock position with transfascial 2-0 proline sutures. The mesh was then tacked up with dissolvable tacks circumferentially. The fascia was then closed over the mesh with 2-0 proline. The fascia was then injected with bupivocaine 0.25%. The subcutaneous tissue was re-approximated with interrupted 3-0 vicryl. The dermis was closed with 4-0 vicryl. The skin was cleaned and dried and skin affix was applied. Next 1% Lidocaine was injected just above the umbilicaus. An incision was made with a 10 blade. The dissection was continued with cautery down to the hernia sac. The hernia sac was opened and there was a small amount of fat within the hernia sac. The sac was amputated and the fat was reduced. The hernia defect was measured at 1 cm x 0.5 cm. The fascia was primarily closed with 2-0 proline figure of eight stitches x 2. 0.25% Bupivocaine was injected into the fascia. The subcutaneous tissue was re-approximated using interrupted 3-0 vicryl suture. The dermis was closed with 4-0 vicryl. The skin was cleaned and dreid and skin affix was applied. The patient was woken up and taken back to recovery in stable condition. There were no immediate complications. Sponge, instrument and needle counts were correct at the end of the case x2.
--- NOTE | 2019-10-31 06:46 | W.PM.DSUDISC ---
Discharge Plan Disposition Patient Disposition: HOME Condition: Good Discharge Details Reason For Visit: Umbilical and supra-umbilical hernia repair Attending Provider: Judy Dowling Primary Care Provider: Jessica Rosado Home Meds and New Rx's Prescriptions: Continued buspirone 15 mg tablet 7.5 mg PO BID RF: 0 sucralfate [Carafate] 1 gram tablet 1 gm PO QACHS Qty: 120 RF: 12 pantoprazole [Protonix] 40 mg tablet,delayed release (DR/EC) 40 mg PO DAILY Qty: 30 RF: 12 multivitamin Tablet 1 tab PO DAILY RF: 0 ascorbic acid (vitamin C) [Vitamin C] 1,000 mg Tablet 1 g PO Q6H RF: 0 diphenhydramine HCl [Benadryl] 25 mg Capsule 50 mg PO QHS RF: 0 Discharge Instructions Additional Instructions: Activity at Home after surgery: 1. Make sure you walk outside at least 4 times per day 2. You should be able to climb a flight of stairs 3. No driving while in pain or taking pain medications 4. No strenuous activity or heavy lifting for 4 weeks (open surgery) Diet, Nutrition, & wound healin. Avoid alcohol until after you are recovered from your surgery 2. Make sure to eat plenty of lean protein (meat, fish, eggs, cottage cheese, beans) 3. Eat a variety of fruits and vegetables. Eat plenty of high fiber foods to avoid constipation. 4. Drink plenty of liquids to stay hydrated and avoid constipation Pain Medications: 1. Alternate Tylenol 1000 mg and Ibuprofen 600 mg every 3 hours 2. If a narcotic has been prescribed take as directed only for breakthrough pain For Constipation: 1. Take Milk of Magnesia or MiraLax as needed for constipation Other: 1. You may shower daily. Do not scrub the incisions 2. Do not soak the incisions for 1 week 3. You may alternate ice and heat as needed for pain and swelling Wound Care: 1. Keep the incisions clean and dry Please call our office if you develop: 1. Fevers >101.5 2. Nausea or Vomiting 3. Worsening pain 4. Redness and thick discharge from the wounds If after hours please call the Hospital at and ask to speak to the on-call surgeon Activity:: No pushing, pulling or lifting >20 lb x 4 weeks Diet:: As Tolerated Discharge Orders Discharge Orders: Discharge Order (Routine); Ordered 10/31/19 Ordered By: Judy Dowling DS: Diagnosis Discharge Diagnosis (1) Hernia: Status: Chronic
[2019-10-31] MEDS: Lactated Ringers 1,000 ML 80 ML IV (07:20)
[2019-10-31] MEDS: ceFAZolin 2 GM/50 ML BAG IVPB (08:19)
[2019-10-31] MEDS: Lidocaine 1% Pres-Free 5 ML VIAL (08:40)
[2019-10-31] MEDS: Bupivacaine 0.5% Pres-Free 30 ML VIAL (09:20)
[2019-10-31] MEDS: fentaNYL 100 MCG/2 ML VIAL IVP (10:28)
== END 2019-10-31 12:30 | disposition home or self-care (01) ==
PROVIDERS: PCP Nurse Practitioner Family; Visit Provider Surgery
PROC: (CPT 49585; principal; 2019-10-31 08:30)
DX: K42.9 Umbilical hernia without obstruction or gangrene (principal); K43.9 Ventral hernia without obstruction or gangrene; K21.9 Gastro-esophageal reflux disease without esophagitis; G89.18 Other acute postprocedural pain
CPT/HCPCS: 49585; 49570; 76942; C1781; J0690; J1100; J1885; J2250; J2405; J2704; J3010

== ENCOUNTER → 2019-11-09 10:19 | Outpatient (BNVA) | payer MEDICARE, SELFPAY | PROVIDERS: PCP Nurse Practitioner Family; Referring Provider Nurse Practitioner Family; Visit Provider Surgery | DX: Z48.815 Encounter for surgical aftercare following surgery on the digestive system (principal); Z87.19 Personal history of other diseases of the digestive system ==

== ENCOUNTER → 2020-10-20 02:37 | Outpatient (CLI) | payer MEDICARE, SELFPAY ==
--- NOTE | 2020-10-20 | DI.US_ITS ---
EXAM: US ABDOMEN CLINICAL HISTORY: EPIGASTRIC ABD PAIN, R10.13,HERNIA,K46.9,GERD,K21.9 TECHNIQUE: Ultrasound of complete upper abdomen performed using standard protocol. COMPARISON: CT CT ABDOMEN PELVIS WO from 04/22/2019 US US OR ANESTHESIA from 10/31/2019 FINDINGS: There is no ascites evident. Anterior abdominal wall: The anterior abdominal wall midline umbilical and supraumbilical hernias anatoly dent on the March 2019 CT scan are not demonstrated on these ultrasound images. LIVER: There are no hepatic lesions evident nor obvious dilatation of intrahepatic ducts. GALLBLADDER/BILIARY: There are no gallstones. No gallbladder wall edema nor pericholecystic fluid. The common hepatic duct isnot dilated, measuring 2mm at the level of tiffani hepatis. PANCREAS: There is no evidence of pancreatic mass nor dilatation of the pancreatic duct. SPLEEN: The spleen is not enlarged and there are no intrasplenic lesions evident. KIDNEYS:Kidneys exhibit normal size with no evidence of solid mass, calculus, nor hydronephrosis. No cortical cysts evident. ABDOMINAL AORTA: There is no evidence of abdominal aortic aneurysm. IVC: Normal diameter where visualized. IMPRESSION: 1. No evidence of cholelithiasis nor dilatation of the biliary tree. 2. No other significant ultrasound findings in the upper abdomen. No ascites 3. The anterior abdominal wall midline hernias which are evident on the prior CT scan of March 2019 a re not evident on these images. Clinically indicated I would repeating the CT scan if there is sympt omatology at the anterior abdominal wall level. DATA REPOSITORY:
== END ==
PROVIDERS: PCP Nurse Practitioner Family; Visit Provider Nurse Practitioner Family
DX: R10.13 Epigastric pain (principal); K21.9 Gastro-esophageal reflux disease without esophagitis
CPT/HCPCS: 76700

== ENCOUNTER 2020-11-04 01:23 | Outpatient (CLI) | payer MEDICARE, SELFPAY ==
--- NOTE | 2020-11-04 | DI.MAMMO_ITS ---
EXAM: MG MAMMO SCREENING CLINICAL HISTORY: SCREENING, Z12.31, FAMILY H/O BREAST CA,Z80.3 TECHNIQUE: Bilateral full field digital CC and MLO mammographic images were obtained with 3D tomosyn thesis and utilizing computer aided detection (CAD). COMPARISON: Available for comparison. FINDINGS: Masses/Architectural Distortion: None seen. There is a stable well-circumscribed nodule in the upper outer quadrant of the right breast. Microcalcifications: No suspicious pleomorphic-type are seen. Skin Thickening/Nipple Retraction: None. IMPRESSION: 1. No significant interval change with no specific features of malignancy noted. 2. Unless there is more urgent need, screening mammography is recommended, as per [employer] guidelines. BI-RADS Category 1 - Negative Breast Density - Category B - Scattered areas of fibroglandular density Breast density category C or D implies that the patient has dense breast tissue. Dense breast tissue is very common and is not abnormal but dense breast tissue can make it harder to find cancer on a ma mmogram. Also, dense breast tissue may increase their breast cancer risk. This information about the result of the mammogram report was provided to the patient to raise their awareness. Use this report when you speak with the patient about their risks for breast cancer, which includes their family hist ory. At that time, you may recommend for more screening tests (Ultrasound or MRI) as they might be us eful based on their risk. A negative radiographic report should not delay biopsy if a dominant or clinically suspicious mass is present. Up to ten percent of cancers are not identified on mammography. A negative report may reinforce clinical impression. Adenosis and dense breasts may obscure an underlying neoplasm. False positive reports average 6 to 10%. Patient will receive a letter notifying them of these results.
== END 2020-11-04 01:24 ==
LOC: DI 01:23
PROVIDERS: PCP Nurse Practitioner Family; Visit Provider Nurse Practitioner Family
DX: Z12.31 Encounter for screening mammogram for malignant neoplasm of breast (principal); Z80.3 Family history of malignant neoplasm of breast
CPT/HCPCS: 77063; 77067

== ENCOUNTER 2021-07-14 12:25 | Outpatient (REF) | payer MEDICARE, SELFPAY ==
[2021-07-14 22:35] LABS: ALT 29 U/L (14-59); AST 16 U/L (15-37); Albumin 3.7 g/dL (3.4-5.0); Alkaline Phosphatase 59 U/L (46-116); Anion Gap 10.7 mmol/L (3-11); BUN 10 mg/dL (7-18); Bilirubin, Total 0.3 mg/dL (0.2-1.0); CO2 24.3 mmol/L (21.0-32.0); CREATININE 1.1 mg/dL (0.55-1.02); Calcium 8.6 mg/dL (8.5-10.1); Calculated LDL 142 mg/dL (<100); Chloride 107 mmol/L (98-107); Cholesterol 233 mg/dL (<200); Estimated GFR 53.24 (mL/min/1.73m2); Glucose 100 mg/dL (74-106); HDL Cholesterol 34 mg/dL (40-60); Magnesium 2.1 mg/dL (1.8-2.4); Potassium 4.1 mmol/L (3.5-5.1); Sodium 142 mmol/L (136-145); Total Protein 6.4 g/dL (6.4-8.2); Triglyceride 287 mg/dL (<150); Vitamin B12 470 pg/mL (193-986)
== END 2021-07-14 12:26 | disposition home or self-care (01) ==
LOC: NCHCN 12:25
PROVIDERS: PCP Nurse Practitioner Family; Visit Provider Nurse Practitioner Family
DX: R79.89 Other specified abnormal findings of blood chemistry (principal); E78.5 Hyperlipidemia, unspecified; K21.9 Gastro-esophageal reflux disease without esophagitis
CPT/HCPCS: 80053; 80061; 82607; 83735

== ENCOUNTER 2022-02-01 17:19 | Outpatient (REF) | payer MEDICARE, SELFPAY ==
[2022-02-01 17:48] LABS: Anion Gap 10.9 mmol/L (3-11); BUN 14 mg/dL (7-18); CO2 27.1 mmol/L (21.0-32.0); CREATININE 1.2 mg/dL (0.55-1.02); Chloride 105 mmol/L (98-107); Estimated GFR 47.95 (mL/min/1.73m2); Glucose 99 mg/dL (74-106); Potassium 4.2 mmol/L (3.5-5.1); Sodium 143 mmol/L (136-145)
== END 2022-02-01 17:20 | disposition home or self-care (01) ==
LOC: NCHCN 17:19
PROVIDERS: PCP Nurse Practitioner Family; Visit Provider Nurse Practitioner Family
DX: N28.9 Disorder of kidney and ureter, unspecified (principal); R79.89 Other specified abnormal findings of blood chemistry
CPT/HCPCS: 80048

== ENCOUNTER → 2022-04-02 00:06 | Outpatient (CLI) | payer MEDICARE, SELFPAY ==
--- NOTE | 2022-04-02 07:45 | DI.MAMMO_ITS ---
Exam(s) MAMMO SCREENING EXAM: MAMMO SCREENING CLINICAL HISTORY: SCREENING, Z12.31 TECHNIQUE: Mammograms were interpreted according to the usual protocol including computer analysis w [employer] CAD system, tomosynthesis and C-view imaging. COMPARISON: 2016 through 2020 FINDINGS: The breasts are composed of scattered fibroglandular densities, Breast Density category B. No suspicious masses or suspicious microcalcifications are seen in the right breast.. There is a sta ble area of nodularity in the upper outer quadrant of the right breast. No skin thickening or abnormal axillary lymph nodes are seen in either breast.. There is a new lobulated area measuring 2 cm in superior right breast with smooth margins which are p artially obscured by breast tissue. Spot compression views and ultrasound are requested for further evaluation. IMPRESSION: Right breast: BI-RADS Category 1, Negative mammogram Yearly screening mammography is recommended. Left breast: BI-RADS Cat 0 - Assessment Incomplete: Need additional imaging evaluation Breast Density - Category B, scattered fibroglandular densities. A negative radiographic report should not delay biopsy if a dominant or clinically suspicious mass is present. Up to ten percent of cancers are not identified on mammography. A negative report may reinforce clinical impression. Adenosis and dense breasts may obscure an underlying neoplasm. False positive reports average 6 to 10%. Patient will receive a letter notifying them of these results.
== END ==
PROVIDERS: PCP Nurse Practitioner Family; Visit Provider Nurse Practitioner Family
DX: Z12.31 Encounter for screening mammogram for malignant neoplasm of breast (principal); R92.8 Other abnormal and inconclusive findings on diagnostic imaging of breast
CPT/HCPCS: 77063; 77067

== ENCOUNTER → 2022-04-14 00:18 | Outpatient (CLI) | payer MEDICARE, SELFPAY ==
--- NOTE | 2022-04-14 | DI.MAMMO_ITS ---
Exam(s) MG MAMMO SCREEN CALL BACK UNI US BREAST LT LIMITED EXAM: MG MAMMO SCREEN CALL BACK UNI CLINICAL HISTORY: F/U ABNL MAMMO, NEW LOBULATED AREA LT BREAST, R92.8. TECHNIQUE: Craniocaudal and mediolateral oblique spot compression digital Mammography views of the l eft breast with Computer Aided Diagnosis followed by Tomosynthesis and left breast ultrasound. COMPARISON: MG Diagnostic Bilat Mammo from 02/11/2017 MG MG MAMMO SCREENING from 09/20/2019 MG MG MAMMO SCREENING from 11/04/2020 MG MG MAMMO SCREENING from 04/02/2022 US US BREAST LT LIMITED from 04/14/2022 FINDINGS: Mammography/Tomosynthesis: Masses/Architectural Distortion: Persistent circumscribed low-density nodule in the superior, central left breast measuring roughly 13 x 18 millimeters. Microcalcifictions: No suspicious pleomorphic-type are seen. Skin Thickening/Nipple Retraction: None. Left breast US: Echotexture: Normal appearance of the glandular tissue. Shadowing: No suspicious foci. Cyst: Cyst with septations versus 2 adjacent cysts measuring 12 x 0.9 by 17 millimeters in aggregate as well as several smaller cysts in the vicinity . Solid lesions: None seen. Ductal dilation: None. IMPRESSION: 1. No evidence of malignancy is noted. 2. Six-month follow-up left mammogram and ultrasound are recommended. 3. The findings were discussed with the patient on the date of the examination. BI-RADS Category 3 - Probably Benign Finding: Recommend follow-up mammography in 3 months Breast Density - Category B - Scattered areas of fibroglandular density A mammogram that demonstrates density of C or D indicates the patient's breast tissue is dense. Dense breast tissue is very common and is not abnormal, but dense breast tissue can make it harder to find cancer on a mammogram. Also, dense breast tissue may increase their breast cancer risk. This informa tion about the result of the mammogram report was provided to the patient to raise their awareness. U se this report when you speak with the patient about their risks for breast cancer, which includes th eir family history. At that time, you may recommend for more screening tests (Ultrasound or MRI) as t hey might be useful based on their risk. A negative radiographic report should not delay biopsy if a dominant or clinically suspicious mass is present. Up to ten percent of cancers are not identified on mammography. A negative report may reinforce clinical impression. Adenosis and dense breasts may obscure an underlying neoplasm. False positive reports average 6 to 10%. Patient will receive a letter notifying them of these results.
== END ==
PROVIDERS: PCP Nurse Practitioner Family; Visit Provider Nurse Practitioner Family
DX: Z12.31 Encounter for screening mammogram for malignant neoplasm of breast (principal); R92.8 Other abnormal and inconclusive findings on diagnostic imaging of breast
CPT/HCPCS: 76642; 77063; 77067

== ENCOUNTER 2022-10-19 02:24 | Outpatient (CLI) | payer MEDICARE, SELFPAY ==
--- NOTE | 2022-10-19 | DI.US_ITS ---
Exam(s) US BREAST LT COMPLETE MG MAMMO DIAGNOSTIC UNI EXAM: MG MAMMO DIAGNOSTIC UNI-LEFT AND COMPLETE LEFT BREAST ULTRASOUND CLINICAL HISTORY: ABNL FINDINGS ON MAMMO R92.8 6 MO FU. TECHNIQUE: Both CC and MLO views of the left breast mammographic images were obtained with 3D tomosy nthesis technique and utilizing computer aided detection (CAD). Complete left breast ultrasound was performed including all 4 quadrants as well as the axillary regio n. COMPARISON: Prior mammograms were reviewed, the most recent being March 2020. Prior ultrasound at that time was also reviewed FINDINGS: DIAGNOSTIC LEFT BREAST MAMMOGRAM: The previously described nodular density at 12 o'clock position persists on the mammogram. We procee ded with ultrasound. COMPLETE LEFT BREAST ULTRASOUND: There is a benign 4 millimeter microcysts at the 4 o'clock position. Another 4 millimeter benign samir rocyst is noted at the 6 o'clock position. The main finding is again at the 12 o'clock position and corresponds to the finding on the mammogram. This is a probable conglomeration of microcysts which measures 2 x 0.8 cm. Slightly increased in s ize from prior measurements of March 2022. It is wider than taller and exhibits slightly increased th rough transmission. It does contain multiple septae which do not exhibit significant color-flow. No prominent nodularity. IMPRESSION: 12 o'clock position left breast finding as described above, slightly increased in size from prior delon ging of March 2022. This is probably a conglomeration of microcysts with multiple internal septae. N evertheless, it has slightly increased in size from March 2022. I feel that this may be instance wher e ultrasound-guided FNA would be useful with targeting of the septe as well as aspiration/sampling of the fluid. Findings and recommendations were discussed by myself with the patient today. I also spoke with the referring provider by telephone today. BI-RADS Category 4 - Suspicious Abnormality: Biopsy should be considered, as discussed above. Breast Density - Category B - Scattered areas of fibroglandular density Breast density Category C or D implies that the patient has dense breast tissue. Dense breast tissue can make it harder to find cancer on a mammogram. Dense breast tissue is also associated with an incr eased risk of breast cancer. This information about the result of the mammogram report was provided to the patient to raise their awareness. Use this report when you speak with the patient about their risks for breast cancer, which includes their family history. At that time, you may recommend additional screening tests (Ultrasoun d or MRI) as these tests may add significant information. A negative radiographic report should not delay biopsy if a dominant or clinically suspicious mass is present. Up to ten percent of cancers are not identified on mammography. A negative report may reinforce clinical impression. Adenosis and dense breasts may obscure an underlying neoplasm. False positive reports average 6 to 10%. Patient will receive a letter notifying them of these results.
== END 2022-10-19 02:44 ==
LOC: DI 02:25
PROVIDERS: PCP Nurse Practitioner Family; Visit Provider Nurse Practitioner Family
DX: R92.8 Other abnormal and inconclusive findings on diagnostic imaging of breast (principal); N60.12 Diffuse cystic mastopathy of left breast
CPT/HCPCS: 76642; 77061; 77065; G0279

== ENCOUNTER 2022-10-25 15:56 | Outpatient (REF) | payer MEDICARE, SELFPAY ==
[2022-10-25 17:06] LABS: ALT 19 U/L (14-59); AST 16 U/L (15-37); Alkaline Phosphatase 55 U/L (46-116); BUN 7 mg/dL (7-18); Bilirubin, Total 0.4 mg/dL (0.2-1.0); CREATININE 1.2 mg/dL (0.55-1.02); Chloride 104 mmol/L (98-107); Estimated GFR 55.84 (mL/min/1.73m2); Glucose 100 mg/dL (74-106); Potassium 4.1 mmol/L (3.5-5.1); Sodium 140 mmol/L (136-145); Total Protein 6.5 g/dL (6.4-8.2)
== END 2022-10-25 15:57 | disposition home or self-care (01) ==
LOC: NCHCN 15:56
PROVIDERS: PCP Nurse Practitioner Family; Visit Provider Nurse Practitioner Family
DX: E78.5 Hyperlipidemia, unspecified (principal); R79.89 Other specified abnormal findings of blood chemistry; K52.9 Noninfective gastroenteritis and colitis, unspecified; N28.9 Disorder of kidney and ureter, unspecified
CPT/HCPCS: 80053

== ENCOUNTER 2023-01-10 01:16 | Outpatient (CLI) | payer MEDICARE, SELFPAY ==
--- NOTE | 2023-01-10 | DI.US_ITS ---
Exam(s) US RENAL EXAM: US RENAL CLINICAL HISTORY: CHRONIC KIDNEY DISEASE Z18.31 TECHNIQUE: Ultrasound of both kidneys performed using standard protocol. COMPARISON: US US BREAST LT COMPLETE from 10/19/2022 FINDINGS: RIGHT KIDNEY: Measures 12 cm in length. No cysts evident. Normal cortical thickness and corticomedullary differenti ation .No solid masses No intrarenal calculi nor hydronephrosis. LEFT KIDNEY: Measures 10 cm in length. No cysts evident. Normal cortical thickness and corticomedullary different iaion. No solids masses. No intrarenal calculi nor hydonephrosis. URINARY BLADDER: Prevoid volume is 291 cc Postvoid volume is 46 cc No evidence of bladder mass nor diverticuli. Ureterovesical jets: Both identified and appear symmetrical IMPRESSION: 1. No significant ultrasound findings in the kidneys. 2. No obvious mass in the urinary bladder. Postvoid residual volume is 46 cc DATA REPOSITORY:
== END 2023-01-10 01:36 ==
LOC: DI 01:17
PROVIDERS: PCP Nurse Practitioner Family; Visit Provider Nurse Practitioner Family
DX: N18.31 Chronic kidney disease, stage 3a (principal)
CPT/HCPCS: 76770

== ENCOUNTER 2023-07-05 15:06 | Outpatient (REF) | payer MEDICARE, SELFPAY | END 2023-07-05 15:07 | disposition home or self-care (01) | LOC: NCHCN 15:06 | PROVIDERS: PCP Nurse Practitioner Family; Visit Provider Nurse Practitioner Family | DX: R30.0 Dysuria (principal); N18.31 Chronic kidney disease, stage 3a; R79.89 Other specified abnormal findings of blood chemistry; E78.5 Hyperlipidemia, unspecified; R10.13 Epigastric pain; K21.9 Gastro-esophageal reflux disease without esophagitis; F43.10 Post-traumatic stress disorder, unspecified | CPT/HCPCS: 87086 ==

== ENCOUNTER → 2023-11-07 02:04 | Outpatient (CLI) | payer MEDICARE, SELFPAY ==
--- NOTE | 2023-11-07 | DI.MAMMO_ITS ---
Exam(s) MAMMO SCREENING EXAM: MAMMO SCREENING CLINICAL HISTORY: FAMILY HX BREAST CA, Z80.3, SCREENING, Z12.31 TECHNIQUE: Mammograms were interpreted according to the usual protocol including computer analysis w [employer] CAD system, tomosynthesis and C-view imaging. COMPARISON: 2016 through 2022 FINDINGS: The breasts are composed of scattered fibroglandular densities, Breast Density category B. No suspicious masses or suspicious microcalcifications are seen. Stable circumscribed nodule upper o uter quadrant right breast. Decreased prominence of area of nodularity in central superior left sind[address] st. No skin thickening or abnormal axillary lymph nodes are seen. There has been no significant change from prior exams. IMPRESSION: BI-RADS Category 2 - Benign Findings Yearly screening mammography is recommended. Breast Density - Category B, scattered fibroglandular densities. A negative radiographic report should not delay biopsy if a dominant or clinically suspicious mass is present. Up to ten percent of cancers are not identified on mammography. A negative report may reinforce clinical impression. Adenosis and dense breasts may obscure an underlying neoplasm. False positive reports average 6 to 10%. Patient will receive a letter notifying them of these results.
== END ==
PROVIDERS: PCP Nurse Practitioner Family; Visit Provider Nurse Practitioner Family
DX: Z12.31 Encounter for screening mammogram for malignant neoplasm of breast (principal); Z80.3 Family history of malignant neoplasm of breast; R92.323 Mammographic fibroglandular density, bilateral breasts
CPT/HCPCS: 77063; 77067

== ENCOUNTER 2023-12-05 17:30 | Outpatient (REF) | payer MEDICARE, SELFPAY ==
[2023-12-05 21:26] LABS: ALT 28 U/L (14-59); AST 15 U/L (15-37); Albumin 3.8 g/dL (3.4-5.0); Alkaline Phosphatase 56 U/L (46-116); Anion Gap 11.8 mmol/L (3-11); BUN 6 mg/dL (7-18); Bilirubin, Direct 0.1 mg/dL (0.0-0.2); Bilirubin, Total 0.5 mg/dL (0.2-1.0); CO2 25.2 mmol/L (21.0-32.0); CREATININE 1.2 mg/dL (0.55-1.02); Calcium 8.7 mg/dL (8.5-10.1); Chloride 105 mmol/L (98-107); Estimated GFR 55.15 (mL/min/1.73m2); Glucose 103 mg/dL (74-106); Potassium 4.3 mmol/L (3.5-5.1); Sodium 142 mmol/L (136-145); Total Protein 6.5 g/dL (6.4-8.2)
== END 2023-12-05 17:31 | disposition home or self-care (01) ==
LOC: NCHCN 17:30
PROVIDERS: PCP Nurse Practitioner Family; Visit Provider Nurse Practitioner Family
DX: F43.10 Post-traumatic stress disorder, unspecified (principal)
CPT/HCPCS: 80053; 80076

== ENCOUNTER 2024-11-13 16:39 | Outpatient (REF) | payer MEDICARE, SELFPAY ==
[2024-11-13 21:13] LABS: ALT 20 U/L (14-59); AST 13 U/L (15-37); Albumin 3.8 g/dL (3.4-5.0); Alkaline Phosphatase 61 U/L (46-116); Anion Gap 10.1 mmol/L (3-11); BUN 17 mg/dL (7-18); Bilirubin, Total 0.21 mg/dL (0.2-1.0); CO2 26.9 mmol/L (21.0-32.0); CREATININE 1.2 mg/dL (0.55-1.02); Calcium 9.3 mg/dL (8.5-10.1); Calculated LDL 177 mg/dL (<100); Chloride 107 mmol/L (98-107); Cholesterol 278 mg/dL (<200); Estimated GFR 55.15 (mL/min/1.73m2); Glucose 97 mg/dL (74-106); HDL Cholesterol 50 mg/dL (40-60); Potassium 4.2 mmol/L (3.5-5.1); Sodium 144 mmol/L (136-145); Total Protein 6.5 g/dL (6.4-8.2); Triglyceride 256 mg/dL (<150)
[2024-11-13 21:32] LABS: Bilirubin Negative (Negative); Blood Trace-intact (Negative); Clarity Clear (Clear); Glucose Negative (Negative); Ketones Negative (Negative); Leukocyte Esterase Negative (Negative); Nitrite Negative (Negative); Specific Gravity 1.015 (1.005-1.025); Urobilinogen 0.2 mg/dL (Up to 0.2); pH 6.5 (5-8)
[2024-11-13 21:34] LABS: COMMENT (LAB VIEW ONLY) 50.47 mg/dL; Microalb ug/mg Crea 4.2 ug/mg Cr
[2024-11-15 17:29] LABS: Cystatin C, S 1.14 mg/L; eGFR by Cystatin C 63 mL/min/BSA (>60)
== END 2024-11-13 16:40 | disposition home or self-care (01) ==
LOC: NCHCN 16:39
PROVIDERS: PCP Nurse Practitioner Family; Visit Provider Nurse Practitioner Family
DX: E78.5 Hyperlipidemia, unspecified (principal); N18.31 Chronic kidney disease, stage 3a
CPT/HCPCS: 80053; 80061; 82610; 81003; 82043; 82570

== ENCOUNTER 2024-12-24 01:17 | Outpatient (CLI) | payer MEDICARE, SELFPAY ==
--- NOTE | 2024-12-24 | DI.MAMMO_ITS ---
Exam(s) MAMMO SCREENING EXAM: MAMMO SCREENING CLINICAL HISTORY: Z12.31, Z80.3 Screening, FA HX CA of breast TECHNIQUE: Bilateral full field digital CC and MLO mammographic images were obtained with 3D tomosyn thesis and utilizing computer aided detection (CAD). COMPARISON: Available for comparison. FINDINGS: Masses/Architectural Distortion: The nodule in the upper outer quadrant of the right breast appears s table. No new nodules are seen. No areas of architectural distortion are present. Microcalcifications: No suspicious pleomorphic-type are seen. Skin Thickening/Nipple Retraction: None. IMPRESSION: 1. No significant interval change with no specific features of malignancy noted. 2. Unless there is more urgent need, screening mammography is recommended, as per [place] [employer] guidelines. BI-RADS Category 2 - Benign Findings Breast Density - Category B - Scattered areas of fibroglandular density Breast density category C or D implies that the patient has dense breast tissue. Dense breast tissue is very common and is not abnormal but dense breast tissue can make it harder to find cancer on a ma mmogram. Also, dense breast tissue may increase their breast cancer risk. This information about the result of the mammogram report was provided to the patient to raise their awareness. Use this report when you speak with the patient about their risks for breast cancer, which includes their family hist ory. At that time, you may recommend for more screening tests (Ultrasound or MRI) as they might be us eful based on their risk. A negative radiographic report should not delay biopsy if a dominant or clinically suspicious mass is present. Up to ten percent of cancers are not identified on mammography. A negative report may reinforce clinical impression. Adenosis and dense breasts may obscure an underlying neoplasm. False positive reports average 6 to 10%. Patient will receive a letter notifying them of these results.
== END 2024-12-24 01:37 ==
LOC: DI 01:17
PROVIDERS: PCP Nurse Practitioner Family; Visit Provider Nurse Practitioner Family
DX: Z80.3 Family history of malignant neoplasm of breast (principal); Z12.31 Encounter for screening mammogram for malignant neoplasm of breast; R92.323 Mammographic fibroglandular density, bilateral breasts; D24.1 Benign neoplasm of right breast
CPT/HCPCS: 77063; 77067